=== PATIENT | male | born 1990 | race African-American/Black ===

== ENCOUNTER 2022-07-21 14:17 | Emergency (ER) | payer OTHER ==
[~2022-07-21] VITALS: Ht 188 cm; Wt 104.3 kg
--- NOTE | 2022-07-21 14:55 | NUR ---
REceived pt 32 yrs OLD MALE walkin in c/o genralized body body rash and redness and swallen and redness on ears
[2022-07-21] MEDS ORDERED: cetrizine 10 MG TABLET PO ONE (15:00)
[2022-07-21] MEDS ORDERED: FAMOTIDINE (20 MG) 20 MG TABLET PO ONE (15:00)
[2022-07-21] MEDS ORDERED: predniSONE 50 MG TABLET PO ONE (15:00)
--- NOTE | 2022-07-21 15:00 | NUR ---
seen by DR. MARMOLEJO
[2022-07-21] MEDS ORDERED: FAMOTIDINE (20 MG) 20 MG TABLET ONE (15:12)
[2022-07-21] MEDS ORDERED: cetrizine 10 MG TABLET ONE (15:14)
[2022-07-21] MEDS ORDERED: PRED20TA PO (15:20)
[2022-07-21] MEDS ORDERED: CETI-90 PO (15:20)
[2022-07-21] MEDS ORDERED: FAMO-131 PO (15:20)
[2022-07-21] MEDS ORDERED: predniSONE 20 MG TABLET ONE (15:20)
[2022-07-21] MEDS ORDERED: predniSONE 20 MG TABLET PO ONE (15:30)
--- NOTE | 2022-07-21 15:40 | NUR ---
TREATMENT WAS GIVEN
--- NOTE | 2022-07-21 15:58 | NUR ---
Patient discharged to home in stable condition. Written and verbal after care instructions given. Patient verbalizes understanding of instruction.and rx given to pt
--- NOTE | 2022-07-21 15:59 | NUR ---
pt feeling beatter and improving
[2022-07-21 16:00] VITALS: BP 123/85
== END 2022-07-21 16:01 | disposition home or self-care (01) ==
LOC: ER 15:00
DX: T78.1XXA Other adverse food reactions, not elsewhere classified, initial encounter (principal); Z60.2 Problems related to living alone; Z79.899 Other long term (current) drug therapy; X58.XXXA Exposure to other specified factors, initial encounter
CPT/HCPCS: 99284; J7512